=== PATIENT | male | born 1985 | race Caucasian/White ===

== ENCOUNTER 2021-11-20 10:34 | Emergency (ER) | payer MEDICAID, SELFPAY ==
[2021-11-20 10:40] VITALS: BP 177/103; PULSE 74; RESP 17; TEMP 36.6; O2SAT 95; BMI 59.7
[2021-11-20 10:48] VITALS: BP 177/103; PULSE 74; RESP 19; TEMP 36.6; O2SAT 95
--- NOTE | 2021-11-20 10:59 | W.ED.CHESTPA ---
HPI - Chest Pain General: Chief Complaint: Chest Pain Stated Complaint: painful deep breathing front/back Time Seen by Provider: 11/20/21 10:40 History of Present Illness: Left side upper chest pain, reproducible with deep breath MD complaint: chest heaviness Onset (ago): week(s) (2) Pain location: left chest Pain scale (0-10): 2 Associated symptoms: Reports dyspnea and other (mild, productive cough) Review of Systems General: Reports: 10 or more systems reviewed and unremarkable except in HPI and below Resp: Reports: dyspnea, productive cough and change in phlegm color; Denies: wheezing PFSH ED PFSH: Social History Smoking and tobacco status: former smoker Physical Exam Const: COMMON NORMALS: no acute distress, patient oriented x3, no limitations and alert GENERAL APPEARANCE: cooperative and comfortable ORIENTATION/CONSCIOUSNESS: Yes awake, Yes oriented to person, Yes oriented to place and Yes oriented to time HENMT: COMMON NORMALS: normocephalic, atraumatic, external ears normal, EAC's normal, TM's normal bilaterally and Normal external nose present HEAD & SCALP: normal to inspection, normocephalic and atraumatic FACE & SINUS: normal facial exam, sinuses nontender and face symmetric NOSE: Normal external nose present, Normal nares present and No nasal discharge present EXTERNAL EAR: Yes external ears normal EXTERNAL AUDITORY CANAL: EAC's normal TYMPANIC MEMBRANE: TM's normal bilaterally MOUTH: Normal oral and palatal mucosa present, lip normal and tongue normal THROAT: posterior oropharynx normal, tonsils normal and uvula midline Eye: COMMON NORMALS: Equal, round and reactive pupils present, EOMs intact bilaterally and conjunctivae normal GENERAL EYE: appearance normal, both eyes and all related structures and normal light reflex EYELID: eyelids normal CONJUNCTIVA: Yes conjunctivae normal PUPIL: Yes Equal, round and reactive pupils present EOM: Yes EOM abnormal DIRECT OPHTHALMOSCOPY: Yes normal light reflex Neck/C-Spine: COMMON NORMALS: full ROM, no lymphadenopathy, supple, no meningeal signs, no JVD and Thyroid normal GENERAL: Yes normal visual inspection THYROID: Thyroid normal CERVICAL SPINE: Yes cervical ROM normal and Yes normal cervical lordosis Lymph: LYMPHATIC: no lymphadenopathy noted Chest: COMMONS NORMALS: normal inspection of the chest and normal palpation of entire chest wall Resp: COMMON NORMALS: normal respiratory effort, No retractions and clear to auscultation bilaterally EFFORT & INSPECTION: Yes able to speak in complete sentences and Yes symmetric chest movement AUSCULTATION: clear to auscultation bilaterally Cardio: COMMON NORMALS: no JVD, regular rate, regular rhythm, S1 normal heart sound present, S2 normal heart sound present, No gallops present (Cardio), No clicks present (Cardio), No murmurs present (Cardio), No rub (Cardio) and Peripheral pulses 2+ throughout RATE: regular rate RHYTHM: regular rhythm HEART SOUNDS: S1 normal heart sound present and S2 normal heart sound present PERIPHERAL PULSES: Peripheral pulses 2+ throughout GI: COMMON NORMALS: Normal to inspection, nondistended, normoactive bowel sounds present, Soft to palpation, non-tender and no masses PALPATION: Yes Soft to palpation : COMMON NORMALS: Yes no CVA tenderness BLADDER/KIDNEY EXAM: Yes no CVA tenderness Back/Pelvis: COMMON NORMALS: no CVA tenderness, thoracic and lumbar spine normal to inspection, no thoracic nor lumbar tenderness and thoraco-lumbar ROM normal Extremity: COMMON NORMALS: normal to inspection, full ROM, capillary refill normal, no joint enlargement, no clubbing, cyanosis or edema, no calf tenderness and no pedal edema GENERAL: Yes normal exam except as noted Neuro: COMMON NORMALS: patient oriented x3, moves all extremities, no focal motor deficits, no sensory deficits noted and gait normal SENSORIUM/ORIENTATION: Yes alert, Yes oriented to person, Yes oriented to place and Yes oriented to time MENINGEAL SIGNS: Yes no meningeal signs Psych: COMMON NORMALS: mental status grossly normal, Normal thought process present, cooperative, normal affect, speech normal and activity/motor behavior normal SPEECH: Yes normal speech THOUGHT PROCESS: Normal thought process present Skin: COMMON NORMALS: no rashes or lesions noted, no wounds and turgor normal GENERAL SKIN EXAM: no rashes or lesions noted and turgor normal Course ED course: Pt presents to ER with complaints of left side chest wall pain and worsens at night. He has had a wet cough for the past two weeks. Denies fever. Oxygen saturation is 95% on RA but pt is able to speak in full sentences. We will treat for bronchitis with a long acting inhaler, steroids, and azithromycin. Follow up with PCP in 2 days if not improved or return to ER if worsening in symptoms. Vital Signs: Vital signs: Vital Signs Temperature 97.9 F 11/20/21 10:48 Pulse Rate 74 11/20/21 10:48 Respiratory Rate 19 H 11/20/21 10:48 Blood Pressure 177/103 11/20/21 10:48 Pulse Oximetry 95 11/20/21 10:48 MDM - Chest Pain Medical Decision Making Pt CP and left chest wall pain remains dull and present after 2 weeks. He denies SOB or dyspnea. He is not toxic appearing. Has hx of pneumonia. Pt needs his chronic HTN reassessed per his PCP as well. Medical Records Pt CP and left chest wall pain remains dull and present after 2 weeks. He denies SOB or dyspnea. He is not toxic appearing. Has hx of pneumonia. Pt needs his chronic HTN reassessed per his PCP as well. Discharge Plan Discharge Patient Disposition: Home Clinical Impression: Costalchondritis, Bronchitis Condition: Stable Prescriptions: New budesonide 1 mg/2 mL suspension for nebulization 0.5 mg inhalation Q12H Qty: 60 0RF Zithromax TRI-MICHAEL 500 mg tablet 500 mg PO DAILY 5 Days 0RF dexamethasone 6 mg tablet 6 mg PO DAILY Qty: 6 0RF No Action losartan 50 mg tablet 50 mg PO DAILY 0RF Trintellix 10 mg tablet 10 mg PO DAILY 0RF amlodipine 10 mg tablet 10 mg PO DAILY 0RF buspirone 5 mg tablet 5 mg PO BID 0RF triamcinolone acetonide 0.1 % cream 1 applic topical BID 7 Days Qty: 30 0RF Discharge Orders: Discharge ED (Routine); Ordered 11/20/21 Ordered By: Asmita Castellon Patient Instructions: Opioid Safety Coding Level of Care Code ED Design Studio Consultant for Chg Fwd Exam Comprehensive Medical Decision Making Straight Forward Time Spent (min) 20
== END 2021-11-20 12:51 | disposition home or self-care (01) ==
LOC: ER 11:09
PROVIDERS: Emergency Provider Nurse Practitioner Family; PCP Nurse Practitioner Family
DX: M94.0 Chondrocostal junction syndrome [Tietze] (principal); J40 Bronchitis, not specified as acute or chronic; Z87.891 Personal history of nicotine dependence
CPT/HCPCS: 99282

== ENCOUNTER → 2023-06-08 11:00 | Outpatient (BNVA) | payer MEDICAID, SELFPAY | PROVIDERS: PCP Nurse Practitioner Family; Visit Provider Family Medicine | DX: F41.9 Anxiety disorder, unspecified (principal); I10 Essential (primary) hypertension | CPT/HCPCS: 80053; 80061; 84443 ==

== ENCOUNTER 2024-06-26 05:08 | Emergency (ER) | payer MEDICAID, SELFPAY ==
[2024-06-26] VITALS (7 sets, daily range): BP systolic 142–223; BP diastolic 77–138; PULSE 51–70; RESP 14–16; TEMP 36.8–37.1; O2SAT 92–100; BMI 53.1
--- NOTE | 2024-06-26 05:14 | W.ED.ABDPA2 ---
Documented by User: Karen Salazar MD 06/26/24 05:15 HPI - Abdominal Pain General: Chief Complaint: Abdominal Pain Stated Complaint: flank pain Time Seen by Provider: 06/26/24 05:09 History of Present Illness: 39-year-old male with a history of obesity and hypertension who presents emergency room with right-sided abdominal pain. He said it started about midnight. He had an episode of vomiting. Says he has right lower abdominal pain fluctuating from his right front in his right flank. No known fevers. No chest pain. No altered mental status. No focal motor deficits. No dysuria. Related Data Home Medications Medication Instructions Recorded Confirmed amlodipine 10 mg tablet 10 mg PO QPM 06/10/21 06/26/24 hydrochlorothiazide 25 mg tablet 25 mg PO QPM 10/12/22 06/26/24 buspirone 5 mg tablet 5 mg PO BID 06/08/23 06/26/24 diclofenac sodium 75 mg 75 mg PO BID PRN Pain 06/26/24 06/26/24 tablet,delayed release losartan 100 mg tablet 100 mg PO QPM 06/26/24 06/26/24 Previous Rx's Medication Instructions Recorded ciprofloxacin HCl 500 mg tablet 500 mg PO BID #14 tabs 06/26/24 (Cipro) hydrocodone 5 mg-acetaminophen 325 1 tab PO Q6H PRN pain #20 tabs 06/26/24 mg tablet promethazine 25 mg tablet 25 mg PO Q6H PRN nausea and 06/26/24 vomiting #20 tabs tamsulosin 0.4 mg capsule 0.4 mg PO DAILY #30 caps 06/26/24 Allergies Allergy/AdvReac Type Severity Reaction Status Date / Time No Known Allergies Allergy Verified 06/26/24 05:13 Review of Systems Narrative: Constitutional symptoms: Negative except as documented in HPI. Skin symptoms: Negative except as documented in HPI. Eye symptoms: Negative except as documented in HPI. ENMT symptoms: Negative except as documented in HPI. Respiratory symptoms: Negative except as documented in HPI. Cardiovascular symptoms: Negative except as documented in HPI. Gastrointestinal symptoms: Negative except as documented in HPI. Genitourinary symptoms: Negative except as documented in HPI. Musculoskeletal symptoms: Negative except as documented in HPI. Neurologic symptoms: Negative except as documented in HPI. Psychiatric symptoms: Negative except as documented in HPI. Endocrine symptoms: Negative except as documented in HPI. COUNTS INCLUDE 234 BEDS AT THE [facility] ED PFSH: Medical History Allergic rhinitis due to allergen Hypertension Morbid obesity Sore throat and laryngitis Social History Smoking and tobacco/nicotine status: former use of tobacco/nicotine Physical Exam Narrative: EXAM NARRATIVE: General: Alert, no acute distress. Skin: Warm, dry. Head: Normocephalic, atraumatic. Neck: Supple, trachea midline. Eye: Extraocular movements are intact. Ears, nose, mouth and throat: mucosa moist. Cardiovascular: Regular, Normal peripheral perfusion. Respiratory: Lungs are clear to auscultation, respirations are non-labored, breath sounds are equal, Symmetrical chest wall expansion. Gastrointestinal: Soft, patient reports right flank pain, Non distended Musculoskeletal: Normal ROM, no deformity. Neurological: Alert and oriented, No focal neurological deficit observed. Psychiatric: Cooperative, appropriate mood & affect. Course Vital Signs: Vital signs: Vital Signs Temperature 98.2 F 06/26/24 08:13 Pulse Rate 70 06/26/24 08:45 Respiratory Rate 14 06/26/24 05:48 Blood Pressure 142/79 06/26/24 08:45 Pulse Oximetry 95 06/26/24 08:45 Oxygen Delivery Me thod Room Air 06/26/24 08:13 Oxygen Flow Rate 2 06/26/24 07:41 MDM - Abdominal Pain Lab Data 06/26/24 05:16 06/26/24 05:16 Labs/Radiology: Radiology Impressions Abdomen/Pelvis CT 06/26/24 05:41 IMPRESSION: 1. Obstructing urinary stone at the right ureterovesicular junction with the above details. 2. Hepatic steatosis, correlate with laboratory findings of liver dysfunction. Laboratory Results WBC 14.77 10^3/uL (3.29-11.43) H 06/26/24 05:16 RBC 5.40 10^6/uL (3.85-5.65) 06/26/24 05:16 Hgb 14.90 g/dL (11.27-16.99) 06/26/24 05:16 Hct 45.2 % (37-53) 06/26/24 05:16 MCV 83.7 fl (82-101) 06/26/24 05:16 MCH 27.6 pg (27-33) 06/26/24 05:16 MCHC 33.0 g/dL (30-55) 06/26/24 05:16 RDW 12.6 % (12.1-15.1) 06/26/24 05:16 Plt Count 239 10^3/cmm (157-399) 06/26/24 05:16 MPV 10.9 fL (7.4-10.4) H 06/26/24 05:16 Neut % (Auto) 76.6 % 06/26/24 05:16 Lymph % (Auto) 15.2 % 06/26/24 05:16 Holt % (Auto) 6.8 % 06/26/24 05:16 Eos % (Auto) 0.6 % 06/26/24 05:16 Baso % (Auto) 0.3 % 06/26/24 05:16 Neut # (Auto) 11.31 10^3/uL (1.8-7.7) H 06/26/24 05:16 Lymph # (Auto) 2.3 10^3/uL (0.8-4.8) 06/26/24 05:16 Holt # (Auto) 1.0 10^3/uL (0.2-0.9) H 06/26/24 05:16 Eos # (Auto) 0.1 10^3/uL (0.0-0.8) 06/26/24 05:16 Baso # (Auto) 0.0 10^3/uL (0.0-0.1) 06/26/24 05:16 Nucleated RBC % (auto) 0 % 06/26/24 05:16 Nucleated RBCs # 0.0 /100WBC 06/26/24 05:16 Sodium 142 mmol/L (136-145) 06/26/24 05:16 Potassium 3.8 mmol/L (3.5-5.1) 06/26/24 05:16 Chloride 106 mmol/L (98-107) 06/26/24 05:16 Carbon Dioxide 25 mmol/L (22-29) 06/26/24 05:16 Anion Gap 14.8 (5-19) 06/26/24 05:16 BUN 14 mg/dL (6-20) 06/26/24 05:16 Creatinine 1.1 mg/dL (0.7-1.2) 06/26/24 05:16 GFR Calculation 74.5 mL/min (90-130) L 06/26/24 05:16 Glucose 135 mg/dL (65-115) H 06/26/24 05:16 Calculated Osmolality 297 mOsm/kg (285-295) H 06/26/24 05:16 Calcium 9.0 mg/dL (8.5-10.5) 06/26/24 05:16 Total Bilirubin 0.4 mg/dL (0.15-1.2) 06/26/24 05:16 AST 21 U/L (0-40) 06/26/24 05:16 ALT 30 U/L (0-41) 06/26/24 05:16 Alkaline Phosphatase 49 U/L (40-130) 06/26/24 05:16 Total Protein 7.4 g/dL (6.6-8.7) 06/26/24 05:16 Albumin 4.0 g/dL (3.5-5.2) 06/26/24 05:16 Globulin 3.4 g/dL (1.3-4.6) 06/26/24 05:16 Urine Color Dark yellow (Yellow) A 06/26/24 05:18 Urine Appearance Clear (CLEAR) 06/26/24 05:18 Urine pH 5.0 (5-7) 06/26/24 05:18 Ur Specific [place] 1.033 (1.005-1.030) H 06/26/24 05:18 Urine Protein Trace (Negative) A 06/26/24 05:18 Urine Glucose (UA) Negative (Normal) 06/26/24 05:18 Urine Ketones 1+ (Negative) H 06/26/24 05:18 Urine Blood 1+ (Negative) A 06/26/24 05:18 Urine Nitrate Negative (Negative) 06/26/24 05:18 Urine Bilirubin 1+ (Negative) H 06/26/24 05:18 Urine Urobilinogen 1.0 mg/dL (Negative) 06/26/24 05:18 Ur Leukocyte Esterase Trace (Negative) A 06/26/24 05:18 Urine RBC 11-20 /hpf (0-2) H 06/26/24 05:18 Urine WBC 11-20 /hpf (0-5) H 06/26/24 05:18 Ur Squamous Epith Cells 0-5 /hpf (0-5) 06/26/24 05:18 Amorphous Sediment Not Reportable 06/26/24 05:18 Urine Bacteria None seen /hpf (NONE) 06/26/24 05:18 Hyaline Casts 5.36 /lpf 06/26/24 05:18 Discharge Plan Discharge Patient Disposition: Home Clinical Impression: Right nephrolithiasis, Cystitis Condition: Stable Prescriptions: New hydrocodone-acetaminophen 5-325 mg tablet 1 tab PO Q6H PRN (Reason: pain) Qty: 20 0RF promethazine 25 mg tablet 25 mg PO Q6H PRN (Reason: nausea and vomiting) Qty: 20 0RF tamsulosin 0.4 mg capsule 0.4 mg PO DAILY Qty: 30 0RF Cipro 500 mg tablet 500 mg PO BID Qty: 14 0RF No Action amlodipine 10 mg tablet 10 mg PO QPM hydrochlorothiazide 25 mg tablet 25 mg PO QPM buspirone 5 mg tablet 5 mg PO BID diclofenac sodium 75 mg tablet,delayed release (DR/EC) 75 mg PO BID PRN (Reason: Pain) losartan 100 mg tablet 100 mg PO QPM Discharge Orders: Discharge ED (Routine); Ordered 06/26/24 Ordered By: Scout Dalton Referrals: Kia Lopez FNP [Primary Care Provider] - Discharge Diet: Usual diet Discharge Activity: Increase activity as tolerated Patient Instructions: Opioid Safety, Pain Management Activity Restrictions/Additional Instructions: Thank you for choosing [facility] for your healthcare needs today. It is very important that you follow up as instructed or that you return to the Emergency Department should you have concerns or if your condition changes or worsens in any way. You were seen in the emergency room for flank pain. You are found to have a 3 mm stone on the right side that dropped to the bladder. There is also signs of a mild bladder infection. You are given pain medications nausea medications as well as an antibiotic. Additionally given tamsulosin which can help stones passing slightly quicker. Case management working arrangements for you to follow-up with urology. If you develop fever or uncontrolled pain return to the emergency room. You should also strain your urine to catch the stone for analysis Sign Out Sign Out Data: Patient Sign Out occurred on 06/26/24 at 05:46. Patient's care was discussed, and care was transferred from Karen Salazar MD to Scout Dalton DO. Coding Level of Care Code ED Reproduction Artist for Chg Fwd Documented by User: Scout Dalton DO 06/26/24 10:28 HPI - Abdominal Pain General: Chief Complaint: Abdominal Pain Stated Complaint: flank pain Time Seen by Provider: 06/26/24 05:09 Related Data Home Medications Medication Instructions Recorded Confirmed amlodipine 10 mg tablet 10 mg PO QPM 06/10/21 06/26/24 hydrochlorothiazide 25 mg tablet 25 mg PO QPM 10/12/22 06/26/24 buspirone 5 mg tablet 5 mg PO BID 06/08/23 06/26/24 diclofenac sodium 75 mg 75 mg PO BID PRN Pain 06/26/24 06/26/24 tablet,delayed release losartan 100 mg tablet 100 mg PO QPM 06/26/24 06/26/24 Previous Rx's Medication Instructions Recorded ciprofloxacin HCl 500 mg tablet 500 mg PO BID #14 tabs 06/26/24 (Cipro) hydrocodone 5 mg-acetaminophen 325 1 tab PO Q6H PRN pain #20 tabs 06/26/24 mg tablet promethazine 25 mg tablet 25 mg PO Q6H PRN nausea and 06/26/24 vomiting #20 tabs tamsulosin 0.4 mg capsule 0.4 mg PO DAILY #30 caps 06/26/24 Allergies Allergy/AdvReac Type Severity Reaction Status Date / Time No Known Allergies Allergy Verified 06/26/24 05:13 PFSH ED PFSH: Medical History Allergic rhinitis due to allergen Hypertension Morbid obesity Sore throat and laryngitis Social History Smoking and tobacco/nicotine status: former use of tobacco/nicotine Course Vital Signs: Vital signs: Vital Signs Temperature 98.2 F 06/26/24 08:13 Pulse Rate 70 06/26/24 08:45 Respiratory Rate 14 06/26/24 05:48 Blood Pressure 142/79 06/26/24 08:45 Pulse Oximetry 95 06/26/24 08:45 Oxygen Delivery Me thod Room Air 06/26/24 08:13 Oxygen Flow Rate 2 06/26/24 07:41 MDM - Abdominal Pain Medical Decision Making Care assumed at change of shift. Patient has a 3 mm stone at the UVJ he is feeling significantly better physical A mild cystitis as well as white count is 14 7 urine did show equal number of white and red blood cells per will start him on Cipro additionally put him on tamsulosin, hydrocodone and promethazine. Strain urine. And arrange for follow-up with urology. If pain becomes uncontrolled or develops fever return to the emergency room Medical Records I reviewed the patient's medical records. Lab Data I reviewed the patient's lab results. 06/26/24 05:16 06/26/24 05:16 Labs/Radiology: Radiology Impressions Abdomen/Pelvis CT 06/26/24 05:41 IMPRESSION: 1. Obstructing urinary stone at the right ureterovesicular junction with the above details. 2. Hepatic steatosis, correlate with laboratory findings of liver dysfunction. Laboratory Results WBC 14.77 10^3/uL (3.29-11.43) H 06/26/24 05:16 RBC 5.40 10^6/uL (3.85-5.65) 06/26/24 05:16 Hgb 14.90 g/dL (11.27-16.99) 06/26/24 05:16 Hct 45.2 % (37-53) 06/26/24 05:16 MCV 83.7 fl (82-101) 06/26/24 05:16 MCH 27.6 pg (27-33) 06/26/24 05:16 MCHC 33.0 g/dL (30-55) 06/26/24 05:16 RDW 12.6 % (12.1-15.1) 06/26/24 05:16 Plt Count 239 10^3/cmm (157-399) 06/26/24 05:16 MPV 10.9 fL (7.4-10.4) H 06/26/24 05:16 Neut % (Auto) 76.6 % 06/26/24 05:16 Lymph % (Auto) 15.2 % 06/26/24 05:16 Holt % (Auto) 6.8 % 06/26/24 05:16 Eos % (Auto) 0.6 % 06/26/24 05:16 Baso % (Auto) 0.3 % 06/26/24 05:16 Neut # (Auto) 11.31 10^3/uL (1.8-7.7) H 06/26/24 05:16 Lymph # (Auto) 2.3 10^3/uL (0.8-4.8) 06/26/24 05:16 Holt # (Auto) 1.0 10^3/uL (0.2-0.9) H 06/26/24 05:16 Eos # (Auto) 0.1 10^3/uL (0.0-0.8) 06/26/24 05:16 Baso # (Auto) 0.0 10^3/uL (0.0-0.1) 06/26/24 05:16 Nucleated RBC % (auto) 0 % 06/26/24 05:16 Nucleated RBCs # 0.0 /100WBC 06/26/24 05:16 Sodium 142 mmol/L (136-145) 06/26/24 05:16 Potassium 3.8 mmol/L (3.5-5.1) 06/26/24 05:16 Chloride 106 mmol/L (98-107) 06/26/24 05:16 Carbon Dioxide 25 mmol/L (22-29) 06/26/24 05:16 Anion Gap 14.8 (5-19) 06/26/24 05:16 BUN 14 mg/dL (6-20) 06/26/24 05:16 Creatinine 1.1 mg/dL (0.7-1.2) 06/26/24 05:16 GFR Calculation 74.5 mL/min (90-130) L 06/26/24 05:16 Glucose 135 mg/dL (65-115) H 06/26/24 05:16 Calculated Osmolality 297 mOsm/kg (285-295) H 06/26/24 05:16 Calcium 9.0 mg/dL (8.5-10.5) 06/26/24 05:16 Total Bilirubin 0.4 mg/dL (0.15-1.2) 06/26/24 05:16 AST 21 U/L (0-40) 06/26/24 05:16 ALT 30 U/L (0-41) 06/26/24 05:16 Alkaline Phosphatase 49 U/L (40-130) 06/26/24 05:16 Total Protein 7.4 g/dL (6.6-8.7) 06/26/24 05:16 Albumin 4.0 g/dL (3.5-5.2) 06/26/24 05:16 Globulin 3.4 g/dL (1.3-4.6) 06/26/24 05:16 Urine Color Dark yellow (Yellow) A 06/26/24 05:18 Urine Appearance Clear (CLEAR) 06/26/24 05:18 Urine pH 5.0 (5-7) 06/26/24 05:18 Ur Specific [place] 1.033 (1.005-1.030) H 06/26/24 05:18 Urine Protein Trace (Negative) A 06/26/24 05:18 Urine Glucose (UA) Negative (Normal) 06/26/24 05:18 Urine Ketones 1+ (Negative) H 06/26/24 05:18 Urine Blood 1+ (Negative) A 06/26/24 05:18 Urine Nitrate Negative (Negative) 06/26/24 05:18 Urine Bilirubin 1+ (Negative) H 06/26/24 05:18 Urine Urobilinogen 1.0 mg/dL (Negative) 06/26/24 05:18 Ur Leukocyte Esterase Trace (Negative) A 06/26/24 05:18 Urine RBC 11-20 /hpf (0-2) H 06/26/24 05:18 Urine WBC 11-20 /hpf (0-5) H 06/26/24 05:18 Ur Squamous Epith Cells 0-5 /hpf (0-5) 06/26/24 05:18 Amorphous Sediment Not Reportable 06/26/24 05:18 Urine Bacteria None seen /hpf (NONE) 06/26/24 05:18 Hyaline Casts 5.36 /lpf 06/26/24 05:18 All radiology interpretation(s) finalized by discharge Discharge Plan Discharge Patient Disposition: Home Clinical Impression: Right nephrolithiasis, Cystitis Condition: Stable Prescriptions: New hydrocodone-acetaminophen 5-325 mg tablet 1 tab PO Q6H PRN (Reason: pain) Qty: 20 0RF promethazine 25 mg tablet 25 mg PO Q6H PRN (Reason: nausea and vomiting) Qty: 20 0RF tamsulosin 0.4 mg capsule 0.4 mg PO DAILY Qty: 30 0RF Cipro 500 mg tablet 500 mg PO BID Qty: 14 0RF No Action amlodipine 10 mg tablet 10 mg PO QPM hydrochlorothiazide 25 mg tablet 25 mg PO QPM buspirone 5 mg tablet 5 mg PO BID diclofenac sodium 75 mg tablet,delayed release (DR/EC) 75 mg PO BID PRN (Reason: Pain) losartan 100 mg tablet 100 mg PO QPM Discharge Orders: Discharge ED (Routine); Ordered 06/26/24 Ordered By: Scout Dalton Referrals: Kia Lopez FNP [Primary Care Provider] - Discharge Diet: Usual diet Discharge Activity: Increase activity as tolerated Patient Instructions: Opioid Safety, Pain Management Activity Restrictions/Additional Instructions: Thank you for choosing [facility] for your healthcare needs today. It is very important that you follow up as instructed or that you return to the Emergency Department should you have concerns or if your condition changes or worsens in any way. You were seen in the emergency room for flank pain. You are found to have a 3 mm stone on the right side that dropped to the bladder. There is also signs of a mild bladder infection. You are given pain medications nausea medications as well as an antibiotic. Additionally given tamsulosin which can help stones passing slightly quicker. Case management working arrangements for you to follow-up with urology. If you develop fever or uncontrolled pain return to the emergency room. You should also strain your urine to catch the stone for analysis Sign Out Sign Out Data: Patient Sign Out occurred on 06/26/24 at 05:46. Patient's care was discussed, and care was transferred from Karen Salazar MD to Scout Dalton DO. Coding Level of Care Code ED Reproduction Artist for Helen No
[2024-06-26 05:27] LABS: Basophils % 0.3 %; Eosinophils # 0.1 10^3/uL (0.0-0.8); Eosinophils % 0.6 %; Hematocrit 45.2 % (37-53); Lymphocytes # 2.3 10^3/uL (0.8-4.8); Lymphocytes % 15.2 %; Mean Corpuscular Hemoglobin 27.6 pg (27-33); Mean Corpuscular Volume 83.7 fl (82-101); Mean Platelet Volume 10.9 fL (7.4-10.4); Monocytes % 6.8 %; Neutrophils # 11.31 10^3/uL (1.8-7.7); Neutrophils % 76.6 %; Nucleated Red Blood Cells % 0 %; Platelet Count 239 10^3/cmm (157-399); Red Cell Distribution Width 12.6 % (12.1-15.1); White Blood Count 14.77 10^3/uL (3.29-11.43)
[2024-06-26 05:29] LABS: Bilirubin Urine 1+ (Negative); Blood Urine 1+ (Negative); Glucose Urine UA Negative (Normal); Ketones Urine 1+ (Negative); Leukocyte Esterase Urine Trace (Negative); Nitrate Urine Negative (Negative); Protein Urine Trace (Negative); Urine Appearance Clear (CLEAR); Urine Color Dark Yellow (Yellow)
[2024-06-26 05:34] LABS: Bacteria Urine None Seen /hpf; Hyaline Casts Urine 5.36 /lpf; Squamous Epithelial Cell Urine 0-5 /hpf (0-5)
[2024-06-26] MEDS: HYDROmorphone 1 mg/mL INJ 1 mL IVP (05:36)
[2024-06-26] MEDS: ondansetron 2 mg/ML SDV 2 mL 4 MG IVP (05:36)
[2024-06-26] MEDS: sodium chloride 0.9% 1,000 ML 999 ML IV (05:36)
[2024-06-26 05:38] LABS: Add Urine Culture? Yes; Specific Gravity, Urine 1.033 (1.005-1.030)
[2024-06-26 05:39] LABS: Alanine Aminotransferase 30 U/L (0-41); Alkaline Phosphatase 49 U/L (40-130); Anion Gap 14.8 (5-19); Aspartate Amino Transferase 21 U/L (0-40); Blood Urea Nitrogen 14 mg/dL (6-20); Carbon Dioxide 25 mmol/L (22-29); Chloride 106 mmol/L (98-107); Creatinine Clr Calc Pharmacy 133.3185; Globulin 3.4 g/dL (1.3-4.6); Glomerular Filtration Rate 74.5 mL/min (90-130); Glucose 135 mg/dL (65-115); Osmolality Calculated 297 mOsm/kg (285-295); Potassium 3.8 mmol/L (3.5-5.1); Sodium 142 mmol/L (136-145); Total Bilirubin 0.4 mg/dL (0.15-1.2); Total Protein 7.4 g/dL (6.6-8.7)
--- NOTE | 2024-06-26 05:41 | CTR_ITS ---
PROCEDURE INFORMATION: Exam: CT Abdomen And Pelvis With Contrast Exam date and time: 06/26/2024 5:50 AM Age: 39 years old Clinical indication: Abdominal pain; Flank; Left TECHNIQUE: Imaging protocol: Computed tomography of the abdomen and pelvis with contrast. Radiation optimization: All CT scans at this facility use at least one of these dose optimization techniques: automated exposure control; mA and/or kV adjustment per patient size (includes targeted exams where dose is matched to clinical indication); or iterative reconstruction. Contrast material: [id number]; Contrast volume: 100 ml; Contrast route: INTRAVENOUS (IV); COMPARISON: No relevant prior studies available. RADIATION DOSE METRICS: Total DLP (mGy-cm): 1366 FINDINGS: Lungs: Lung bases are clear as visualized. Heart: Base of heart is unremarkable as visualized. Liver: Perhaps mild diffuse hepatic steatosis. Gallbladder and biliary ducts: Normal. No calcified stones. No ductal dilation. Pancreas: Normal. No ductal dilation. Spleen: Normal. No splenomegaly. Adrenal glands: Normal. No mass. Kidneys and ureters: At the level of the right ureterovesicular junction there is a calcified urinary stone which measures about 3 mm. There is mild upstream ureterectasis. Mild right hydronephrosis. Delayed nephrogram of the right kidney. Edematous appearance of the right kidney with perinephric stranding in the right renal pelvis. Stomach and bowel: Unremarkable. No obstruction. No mucosal thickening. Appendix: No evidence of appendicitis. Intraperitoneal space: Unremarkable. No free air. No significant fluid collection. Vasculature: Unremarkable. No abdominal aortic aneurysm. Lymph nodes: Unremarkable. No enlarged lymph nodes. Urinary bladder: Unremarkable as visualized. Reproductive: Unremarkable as visualized. Bones/joints: Unremarkable. No acute fracture. Soft tissues: Unremarkable. CT/CT abdomen pelvis w con* [id number] IMPRESSION: 1. Obstructing urinary stone at the right ureterovesicular junction with the above details. 2. Hepatic steatosis, correlate with laboratory findings of liver dysfunction.
[2024-06-26] MEDS: iohexol 350 mg/mL 500 mL Btl (per mL) IV (05:59)
[2024-06-26] MEDS: cefTRIAXone 1,000 mg SDV 1000 MG IVP (08:09)
== END 2024-06-26 08:45 | disposition home or self-care (01) ==
PROVIDERS: Emergency Medicine; Emergency Provider Family Medicine; PCP Nurse Practitioner Family
DX: N20.0 Calculus of kidney (principal); N30.90 Cystitis, unspecified without hematuria; I10 Essential (primary) hypertension; Z87.891 Personal history of nicotine dependence
CPT/HCPCS: 74177; 80053; 81001; 85025; 87086; 96361; 96374; 96375; 99285; J0696; J1170; J2405; J7030